=== PATIENT | female | born 1990 | race Caucasian/White ===

== ENCOUNTER → 2016-06-18 | Outpatient (CLI) | payer OTHER ==
[2016-06-18 18:22] LABS: INR 0.98
[2016-06-23 14:11] LABS: FACTOR II ACTIVITY 118 % (50-154); FACTOR V 110 % (70-150)
== END ==
LOC: M SMT 14:12
PROVIDERS: ATTEND Physician Assistant
DX: Z86.73 Personal history of transient ischemic attack (TIA), and cerebral infarction without residual deficits (principal)

== ENCOUNTER → 2016-07-28 | Outpatient (CLI) | payer OTHER ==
[2016-07-28 10:22] LABS: BASO % 0.5 % (0.0-1.0); EOS # 0.3 K/mm3 (0.0-0.50); EOS % 3.4 % (0.0-3.0); LARGE UNSTAINED CELL # 0.2 K/mm3 (0.0-0.4); LARGE UNSTAINED CELL % 2.7 % (0.0-4.0); LYMPH # 3.4 K/mm3 (1.5-6.5); LYMPH % 40.2 % (24.0-44.0); MEAN CORPUSCULAR HEMOGLOBIN 30.4 pg (27.0-33.0); MEAN CORPUSCULAR HGB CONC 32.6 g/dl (32.0-36.5); MEAN CORPUSCULAR VOLUME 93.2 fl (80.0-96.0); MONO # 0.5 K/mm3 (0.0-0.8); MONO % 5.5 % (0.0-5.0); NEUTROPHILS # 4.1 K/mm3 (1.8-7.7); NEUTROPHILS % 47.8 % (36.0-66.0); PLATELET COUNT, AUTOMATED 529 k/mm3 (150-450); RED CELL DISTRIBUTION WIDTH 13.2 % (11.5-14.5); WHITE BLOOD COUNT 8.5 K/mm3 (4.0-10.0)
[2016-07-28 10:32] LABS: ALBUMIN 4.6 GM/DL (3.2-5.2); ALBUMIN/GLOBULIN RATIO 1.44 (1.00-1.93); BILIRUBIN,DIRECT 0.2 MG/DL (0.0-0.2); TOTAL PROTEIN 7.8 GM/DL (6.4-8.2)
[2016-07-28 11:52] LABS: ERYTHROCYTE SEDIMENTATION RATE 10 mm/hr (0-20)
--- NOTE | 2016-07-29 02:49 | REP ---
Clinical: Cough . Comparison: None . Technique: PA and lateral. Findings: The mediastinum and cardiac silhouette are normal. Increased coarsened markings may reflect bronchitis/chronic reactive airway disease without acute consolidation, effusion, or pneumothorax. The skeletal structures are intact and normal. Impression: 1. Cannot exclude bronchitis and chronic reactive airway disease Signed by Jose Guerrero MD 07/29/2016 02:41 A
== END ==
LOC: M SMT 08:06
PROVIDERS: ATTEND Internal Medicine Cardiovascular Disease
DX: I63.8 Other cerebral infarction (principal); E78.5 Hyperlipidemia, unspecified; R05 Cough

== ENCOUNTER → 2016-08-05 | Outpatient (CLI) | payer OTHER ==
[2016-08-05 13:46] LABS: FREE T4 1.05 NG/DL (0.76-1.46)
[2016-08-05 13:48] LABS: ESTRADIOL 24.8 PG/ML; FOLLICLE STIMULATING HORMONE 6.4 mIU/mL; PROLACTIN 8.2 NG/ML
[2016-08-12 00:07] LABS: 17 HYDROXY PROGESTERONE 51 ng/dL (.)
== END ==
LOC: M SMT 07:57
PROVIDERS: ATTEND Advanced Practice Midwife
DX: E28.2 Polycystic ovarian syndrome (principal)

== ENCOUNTER → 2016-08-22 | Outpatient (CLI) | payer OTHER | LOC: M SMT 08:01 | PROVIDERS: ATTEND Advanced Practice Midwife | DX: E28.2 Polycystic ovarian syndrome (principal) ==

== ENCOUNTER → 2016-11-20 | Outpatient (CLI) | payer OTHER ==
[~2016-11-20] MED LIST: LIDOCAINE 1% MDV 20ML VIAL As Ordered ONE
--- NOTE | 2016-11-20 15:16 | REP ---
ULTRASOUND GUIDED LEFT NECK NODULE BIOPSY: The procedure was performed under the direct supervision of Dr. Almaraz. The patient has a history of a palpable lump in the lateral aspect of the left neck. Ultrasound performed at [facility] on 09/18/2016 identifies an anechoic cyst in the subcutaneous soft tissue measuring 1.9 x 1.3 x 0.4 cm. The risks and benefits of the procedure were explained to the patient and informed consent was obtained. The left neck nodule was localized using ultrasound guidance. The skin was prepped and draped in a sterile fashion. 1% Xylocaine was used as a local anesthetic. Using ultrasound guidance 8 fine needle aspirations were obtained using 25-gauge needles. The patient tolerated the procedure well and there were no immediate complications. After the appropriate amount of monitored convalescence the patient was discharged from the department. Reviewed by SYMONE Mar 11/21/2016 03:40 PEdited and Signed by Mohan Almaraz MD 11/25/2016 08:21 A
--- NOTE | 2016-11-20 15:17 | REP ---
Soft-tissue ultrasound left posterior neck: History: The patient referred for ultrasound-guided needle biopsy procedure. Comparison study September 18, 2016, [facility]. Findings: Scanning in the left posterolateral neck at the level of the palpable abnormality demonstrates a chain of normal appearing lymph nodes. The lymph node at the palpable level is 1.7 x 0.3 x 1.1 cm in diameter. Biopsy will proceed using ultrasound guidance. Signed by Mohan Almaraz MD 11/21/2016 10:05 A
== END ==
LOC: M RADPRO 09:17
PROVIDERS: ATTEND Surgery
DX: D34 Benign neoplasm of thyroid gland (principal); Z72.0 Tobacco use; Z79.82 Long term (current) use of aspirin; Z79.899 Other long term (current) drug therapy; Z91.010 Allergy to peanuts; Z91.018 Allergy to other foods

== ENCOUNTER → 2016-12-09 | Outpatient (REF) | payer OTHER | LOC: M LAB REF 15:04 | PROVIDERS: ATTEND Advanced Practice Midwife | DX: Z12.4 Encounter for screening for malignant neoplasm of cervix (principal) ==